=== PATIENT | female | born 1990 | race Caucasian/White ===

== ENCOUNTER 2016-12-06 09:27 | Emergency (ER) | payer SELFPAY ==
[~2016-12-06] VITALS: Ht 167.6 cm; Wt 86.2 kg
[2016-12-06 09:39] VITALS: BP 126/81
--- NOTE | 2016-12-06 09:53 | PHYS DOC ---
Past Medical History Past Medical History: Asthma, UTI, Other Additional Past Medical Histor: MOOD DISORDER, TREMOR R ARM, TACHYCARDIA Past Surgical History: No Surgical History Alcohol Use: Occasionally Drug Use: None Adult General Chief Complaint Chief Complaint: BACK PAIN - NO INJURY [facility] HPI Patient is a 26 year old female presents to the emergency department stating that she has been having a headache on and off for the last month. She states that she's been having a migraine. She also states that whenever she bends her head down that she feels as though her vision goes completely dark. She denies any photophobia. She does state that she has an area on her left parietal area feels numb and tingly occasionally. Patient also states that she's been having bilateral back pain for the last 2 weeks. She denies any urinary frequency urgency or pain with urination denies any blood in her urine. Denies any foul odor. She denies any fever, chills or any nausea vomiting. Patient states she's been taken [id number] medications for the headache and the pain. Review of Systems Review of Systems Constitutional: Denies fever or chills [] Eyes: Denies change in visual acuity, redness, or eye pain [] HENT: nasal congestion denies sore throat [] Respiratory: cough denies shortness of breath [] Cardiovascular: No additional information not addressed in HPI [] GI: Denies abdominal pain, nausea, vomiting, bloody stools or diarrhea [] : Denies dysuria or hematuria [] Musculoskeletal: Bilateral flank back pain denies joint pain [] Integument: Denies rash or skin lesions [] Neurologic: Denies headache, focal weakness or sensory changes [] Endocrine: Denies polyuria or polydipsia [] Current Medications Current Medications Current Medications Medications (Trade) Dose Ordered Sig/Mirza Start Time Stop Time Status Last Admin Dose Admin Albuterol/ Ipratropium (Duoneb) 3 ml 1X ONCE 12/06/16 10:00 12/06/16 10:01 DC 12/06/16 10:01 3 ML Allergies Allergies Allergies Coded Allergies Type Severity Reaction Last Updated Verified Sulfa (Sulfonamide Antibiotics) Allergy Intermediate RASH 12/06/16 Yes levofloxacin Allergy Intermediate HIVES 12/06/16 Yes promethazine Allergy Mild NAUSEA 12/06/16 Yes ibuprofen Allergy Unknown 12/06/16 Yes Physical Exam Physical Exam Constitutional: Well developed, well nourished, no acute distress, non-toxic appearance. [] HENT: Normocephalic, atraumatic, bilateral external ears normal, oropharynx moist, no oral exudates, nose normal. Bilateral tympanic membranes appear to be normal. Throat appears to be without erythematous redness drainage or discharge noted. No frontal maxillary sinus tenderness noted. Eyes: PERRLA, EOMI, conjunctiva normal, no discharge. [] Neck: Normal range of motion, no tenderness, supple, no stridor. [] Cardiovascular:Heart rate regular rhythm, no murmur [] Lungs & Thorax: Bilateral breath sounds clear to auscultation [] Skin: Warm, dry, no erythema, no rash. [] Back: No tenderness, bilateral CVA tenderness. [] Extremities: No tenderness, no cyanosis, no clubbing, ROM intact, no edema. [] Neurologic: Alert and oriented X 3, normal motor function, normal sensory function, no focal deficits noted. [] Psychologic: Affect normal, judgement normal, mood normal. [] Current Patient Data Vital Signs Vital Signs Date Time Temp Pulse Resp B/P (MAP) Pulse Ox O2 Delivery O2 Flow Rate FiO2 12/06/16 10:03 99 Room Air 12/06/16 09:39 98.4 98 18 98.4 Lab Values Laboratory Tests Test 12/06/16 08:59 12/06/16 09:40 POC Urine HCG, Qualitative Hcg negative (Negative) Urine Collection Type Unknown Urine Color Yellow Urine Clarity Cloudy Urine pH 6.0 Urine Specific [place] 1.025 Urine Protein Negative mg/dL (NEG-TRACE) Urine Glucose (UA) Negative mg/dL (NEG) Urine Ketones (Stick) 15 mg/dL (NEG) Urine Blood Negative (NEG) Urine Nitrite Negative (NEG) Urine Bilirubin Negative (NEG) Urine Urobilinogen Dipstick 0.2 mg/dL (0.2 mg/dL) Urine Leukocyte Esterase Moderate (NEG) Urine RBC 1-2 /HPF (0-2) Urine WBC 5-10 /HPF (0-4) Urine Squamous Epithelial Cells Mod /LPF Urine Bacteria Moderate /HPF (0-FEW) EKG EKG [] Radiology/Procedures Radiology/Procedures [][facility] [address] [place] [address] IMAGING REPORT Signed PATIENT: DIAN CURIEL ACCOUNT: [id number] : 1990 LOCATION: ER AGE: 26 SEX: F EXAM STATUS: REG ER ORD. PHYSICIAN: YOSSI JAY APRN REASON: C/o visual problems with headaches PROCEDURE: CT HEAD WO CONTRAST CT scan of the head without contrast 12/06/2016 Clinical history: Headache with visual problems for one month. Technique: Unenhanced, contiguous, 5 mm axial sections were obtained through the head. One or more of the following individualized dose reduction techniques were utilized for this study: 1. Automated exposure control. 2. Adjustment of the mA and/or kV according to patient size. 3. Use of iterative reconstruction technique. Findings: The ventricles and sulci are within normal limits in size and configuration. No area of abnormal attenuation is involving the brain parenchyma. No extra-axial fluid collection is seen. No skull fracture is noted. Impression: Negative study. DICTATED and SIGNED BY: BEBETO PEPPER MD DATE: 12/06/16 1125 CC: YOSSI JAY APRN; NO PCP; NON,STAFF ~ Course & Med Decision Making Course & Med Decision Making Pertinent Labs and Imaging studies reviewed. (See chart for details) Patient's urine was positive for urinary tract infection. Patient does have an upper respiratory infection as well. Patient also is complaining of a headache here in the emergency Department with CT scan being negative. Patient will be encouraged to rest and follow-up with her primary care physician. Patient be provided a prescription for prednisone to help with inflammation. Patient will be discharged home in stable condition signs and symptoms to return back to emergency department as been provided. Patient was also encouraged to follow-up with a neurologist in regards to her vision issues when she bends her head down. Patient agrees with discharge instructions, treatment regimens and follow- up recommendations. All questions and concerns been answered at patient's bedside Dragon Disclaimer Dragon Disclaimer This electronic medical record was generated, in whole or in part, using a voice recognition dictation system. Departure Departure Impression: Primary Impression: URI (upper respiratory infection) Additional Impression: UTI (urinary tract infection) Disposition: HOME, SELF-CARE Condition: STABLE Referrals: NO PCP (PCP) Patient Instructions: Upper Respiratory Infection, Adult, [id number], Urinary Tract Infection, [id number] Additional Instructions: Activity as tolerated. Medication as prescribed. Follow-up with your primary care physician within the next week. It is advisable that you follow-up with a neurologist in regards to your vision issues when you're pending her head. Return back to emergency department sign symptoms of become worse. Scripts Prednisone (PREDNISONE) 20 Mg Tablet 40 MG PO DAILY for 7 Days, #14 TAB Prov: YOSSI JAY APRN 12/06/16 Cephalexin (CEPHALEXIN) 500 Mg Tablet 1 TAB PO BID, #20 TAB Prov: YOSSI JAY APRN 12/06/16 Problem Qualifiers Primary Impression: URI (upper respiratory infection) URI type: unspecified URI Qualified Codes: J06.9 - Acute upper respiratory infection, unspecified Additional Impression: UTI (urinary tract infection) Urinary tract infection type: site unspecified Hematuria presence: without hematuria Qualified Codes: N39.0 - Urinary tract infection, site not specified YOSSI JAY APRN Dec 06, 2016 09:53
[2016-12-06 09:56] LABS: BILIRUBIN,URINE NEGATIVE (NEG); GLUCOSE,URINE NEGATIVE (NEG); NITRITE,URINE NEGATIVE (NEG); PROTEIN,URINE NEGATIVE (NEG-TRACE); UROBILINOGEN,URINE 0.2 mg/dL (0.2 mg/dL)
[2016-12-06] MEDS ORDERED: IPRATRPIUM/ALBUTEROL 0.5/2.5MG 3 ML NEBU. NEB ONE (10:00)
[2016-12-06 10:07] LABS: BACTERIA,URINE MODERATE /HPF (0-FEW)
[2016-12-06 10:08] LABS: SQUAMOUS EPITHELIAL CELL,UR MOD /LPF
--- NOTE | 2016-12-06 11:29 | RAD ---
CT scan of the head without contrast 12/06/2016 Clinical history: Headache with visual problems for one month. Technique: Unenhanced, contiguous, 5 mm axial sections were obtained through the head. One or more of the following individualized dose reduction techniques were utilized for this study: 1. Automated exposure control. 2. Adjustment of the mA and/or kV according to patient size. 3. Use of iterative reconstruction technique. Findings: The ventricles and sulci are within normal limits in size and configuration. No area of abnormal attenuation is involving the brain parenchyma. No extra-axial fluid collection is seen. No skull fracture is noted. Impression: Negative study.
[2016-12-06] MEDS ORDERED: PRED20TA PO (11:36)
[2016-12-06] MEDS ORDERED: CEPH500T PO (11:36)
== END 2016-12-06 11:49 | disposition home or self-care (01) ==
LOC: ER 09:27
DX: J06.9 Acute upper respiratory infection, unspecified (principal); N39.0 Urinary tract infection, site not specified; J45.909 Unspecified asthma, uncomplicated; G43.909 Migraine, unspecified, not intractable, without status migrainosus; Z88.2 Allergy status to sulfonamides; Z88.1 Allergy status to other antibiotic agents; Z88.8 Allergy status to other drugs, medicaments and biological substances; Z88.6 Allergy status to analgesic agent
CPT/HCPCS: 70450; 81001; 81025; 87086; 94250; 94640; 99285; J7620

== ENCOUNTER 2017-03-25 16:51 | Emergency (ER) | payer SELFPAY ==
[~2017-03-25] VITALS: Ht 167.6 cm; Wt 83.9 kg
[~2017-03-25 16:51] MED LIST: CEPH500T PO; PRED20TA PO
[2017-03-25] MEDS ORDERED: IV NORMAL SALINE 1000ML BAG 1,000 ML IV ONE (17:45)
[2017-03-25] MEDS ORDERED: MORPHINE SULFATE 10 MG/ML VIAL. IV ONE (17:45)
[2017-03-25] MEDS ORDERED: ONDANSETRON PF 4 MG/2 ML VIAL. IV ONE (17:45)
[2017-03-25 17:52] LABS: BASO % 0 % (0-3); EOS % 0 % (0-3); HEMATOCRIT 41.4 % (36.0-47.0); HEMOGLOBIN 13.9 g/dL (12.0-15.5); LYMPH # 0.7 x10^3/uL (1.0-4.8); LYMPH % 9 % (24-48); MEAN CORPUSCULAR HEMOGLOBIN 29 pg (25-35); MEAN CORPUSCULAR HGB CONC 34 g/dL (31-37); MEAN CORPUSCULAR VOLUME 87 fL (79-100); MONO % 12 % (0-9); NEUT % 78 % (31-73); PLATELET COUNT 176 x10^3/uL (140-400); RED BLOOD COUNT 4.76 x10^6/uL (3.50-5.40); RED CELL DISTRIBUTION WIDTH 13.4 % (11.5-14.5); WHITE BLOOD COUNT 7.7 x10^3/uL (4.0-11.0)
[2017-03-25 17:59] LABS: OBC FLU VALID
[2017-03-25 18:05] LABS: CALCIUM 8.5 mg/dL (8.5-10.1); GFR 67.6; POTASSIUM 3.8 mmol/L (3.5-5.1)
[2017-03-25 18:11] LABS: ALBUMIN 3.8 g/dL (3.4-5.0); ALBUMIN/GLOBULIN RATIO 1.1 (1.0-1.7); TOTAL BILIRUBIN 0.5 mg/dL (0.2-1.0); TOTAL PROTEIN 7.3 g/dL (6.4-8.2)
--- NOTE | 2017-03-25 18:11 | PHYS DOC ---
Past Medical History Past Medical History: Anxiety, Asthma, Depression, UTI, Other Additional Past Medical Histor: MOOD DISORDER, TREMOR R ARM, TACHYCARDIA Past Surgical History: No Surgical History Alcohol Use: Occasionally Drug Use: None Adult General Chief Complaint Chief Complaint: FLU SYMPTOM HPI HPI Patient is a 26 year old female who presents with fever, sore throat, diffuse myalgias, 3 days. Temperature is 104.9 last evening. Patient last vomited earlier this morning. Denies dizziness lightheadedness. No abdominal pain. No other acute symptoms or complaints. Last menstrual period 10 days ago. Patient is not currently on control. [] Review of Systems Review of Systems His symptoms as per history of present illness. All other review symptoms are negative. All other systems were reviewed and found to be within normal limits, except as documented in this note. Current Medications Current Medications Current Medications Medications (Trade) Dose Ordered Sig/Mirza Start Time Stop Time Status Last Admin Dose Admin Morphine Sulfate 5 mg 1X ONCE 03/25/17 17:45 03/25/17 17:46 DC Ondansetron HCl (Zofran) 4 mg 1X ONCE 03/25/17 17:45 03/25/17 17:46 DC Sodium Chloride 1,000 ml @ 1,000 mls/hr 1X ONCE 03/25/17 17:45 03/25/17 18:44 03/25/17 17:45 1,000 MLS/HR Allergies Allergies Allergies Coded Allergies Type Severity Reaction Last Updated Verified Sulfa (Sulfonamide Antibiotics) Allergy Intermediate RASH 12/06/16 Yes levofloxacin Allergy Intermediate HIVES 12/06/16 Yes promethazine Allergy Mild NAUSEA 12/06/16 Yes ibuprofen Allergy Unknown 12/06/16 Yes Physical Exam Physical Exam Constitutional: Well developed, well nourished,, uncomfortable and sick appearing. [] HENT: Normocephalic, atraumatic, bilateral external ears normal, oropharynx, mild pharyngeal erythema, no oral exudates, nose normal. [] Eyes: PERRLA, EOMI, conjunctiva normal, no discharge. [] Neck: Normal range of motion, no tenderness, supple, no stridor. [] Cardiovascular: Tachycardia[] Lungs & Thorax: Bilateral breath sounds clear to auscultation [] Abdomen: Bowel sounds normal, soft, no tenderness, no masses, no pulsatile masses. [] Skin: Warm, dry, no erythema, no rash. [] Back: No tenderness, no CVA tenderness. [] Extremities: No tenderness, no cyanosis, no clubbing, ROM intact, no edema. [] Neurologic: Alert and oriented X 3, normal motor function, normal sensory function, no focal deficits noted. [] Psychologic: Affect normal, judgement normal, mood normal. [] Current Patient Data Vital Signs Vital Signs Date Time Temp Pulse Resp B/P (MAP) Pulse Ox O2 Delivery O2 Flow Rate FiO2 03/25/17 17:24 102.5 144 18 125/53 (77) 96 Room Air 102.5 Lab Values Laboratory Tests Test 03/25/17 17:30 03/25/17 17:45 03/25/17 17:46 Influenza Type A Antigen Positive (NEGATIVE) Influenza Type B Antigen Negative (NEGATIVE) White Blood Count 7.7 x10^3/uL (4.0-11.0) Red Blood Count 4.76 x10^6/uL (3.50-5.40) Hemoglobin 13.9 g/dL (12.0-15.5) Hematocrit 41.4 % (36.0-47.0) Mean Corpuscular Volume 87 fL (79-100) Mean Corpuscular Hemoglobin 29 pg (25-35) Mean Corpuscular Hemoglobin Concent 34 g/dL (31-37) Red Cell Distribution Width 13.4 % (11.5-14.5) Platelet Count 176 x10^3/uL (140-400) Neutrophils (%) (Auto) 78 % (31-73) H Lymphocytes (%) (Auto) 9 % (24-48) L Monocytes (%) (Auto) 12 % (0-9) H Eosinophils (%) (Auto) 0 % (0-3) Basophils (%) (Auto) 0 % (0-3) Neutrophils # (Auto) 6.0 x10^3uL (1.8-7.7) Lymphocytes # (Auto) 0.7 x10^3/uL (1.0-4.8) L Monocytes # (Auto) 1.0 x10^3/uL (0.0-1.1) Eosinophils # (Auto) 0.0 x10^3/uL (0.0-0.7) Basophils # (Auto) 0.0 x10^3/uL (0.0-0.2) POC Urine HCG, Qualitative Hcg negative (Negative) Laboratory Tests 03/25/17 17:45 EKG EKG [] Radiology/Procedures Radiology/Procedures [] Course & Med Decision Making Course & Med Decision Making Pertinent Labs and Imaging studies reviewed. (See chart for details) [Patient influenza positive. IV fluids pain medication given with symptomatic relief. Recommend continued supportive care and PCP follow-up. Return precautions reviewed. Patient verbalizes understanding agreement prior to departure.] Dragon Disclaimer Dragon Disclaimer This electronic medical record was generated, in whole or in part, using a voice recognition dictation system. Departure Departure Impression: Primary Impression: Influenza A Disposition: HOME, SELF-CARE Condition: GOOD Referrals: NO PCP (PCP) Patient Instructions: Influenza A (H1N1) Additional Instructions: You were evaluated in the emergency department for fever body aches nausea and vomiting. Lab work was obtained and positive for influenza A. Influenza is a viral illness that typically lasts between 3-5 days. Please go home and rest, take ibuprofen for pain and hydrocodone as needed for additional relief. Take nausea medication as directed. Please follow-up with your physician in 3-5 days if symptoms persist. In the meantime, if you develop new or worsening symptoms, please return to the emergency department. BIANKA TELLEZ DO Mar 25, 2017 18:11
[2017-03-25 18:13] LABS: NEG OBC SER NEG; POS OBC SER POS
[2017-03-25 18:35] VITALS: BP 105/67
== END 2017-03-25 18:36 | disposition home or self-care (01) ==
LOC: ER 16:51
DX: J09.X2 Influenza due to identified novel influenza A virus with other respiratory manifestations (principal); F41.9 Anxiety disorder, unspecified; J45.909 Unspecified asthma, uncomplicated; F32.9 Major depressive disorder, single episode, unspecified; Z88.2 Allergy status to sulfonamides; Z87.440 Personal history of urinary (tract) infections; Z88.1 Allergy status to other antibiotic agents; Z88.6 Allergy status to analgesic agent; Z88.8 Allergy status to other drugs, medicaments and biological substances
CPT/HCPCS: 36415; 80053; 81025; 84703; 85025; 87804; 96360; 99284; J7030

== ENCOUNTER 2018-01-16 22:17 | Emergency (ER) | payer SELFPAY ==
[~2018-01-16] VITALS: Ht 167.6 cm; Wt 83.9 kg
[2018-01-16 22:54] VITALS: BP 105/56
--- NOTE | 2018-01-16 23:06 | PHYS DOC ---
Past Medical History Past Medical History: Anxiety, Asthma, Depression, UTI, Other Additional Past Medical Histor: MOOD DISORDER, TREMOR R ARM, TACHYCARDIA Past Surgical History: No Surgical History Alcohol Use: Occasionally Drug Use: None Additional Procedures Progress Pelvic exam with commissioner of conciliation LEDY Pike Genitalia normal morphology with blood at the introitus Exam with blood in the vault moderate clots. There are products of conception at the os. I successfully removed POC from the os with ring forceps and placed in a specimen container. Once products of conception were removed there is no bleeding seen from the os. Exam external os is open internal os is closed has mild uterine tenderness on palpation no adnexal masses or tenderness appreciated Adult General Chief Complaint Chief Complaint: VAGINAL BLEEDING [facility] HPI Patient is a 27 year old female who presents with pelvic pain and vaginal bleeding she is 6 weeks She was seen at [facility] 2 days ago was given pills for elective . She started bleeding this evening at 5:00pm and his had severe bleeding since then. She's passed more than 20 large clots and is having profuse bleeding with pain. She presents for evaluation. Her blood type is O+ per her report. Review of Systems Review of Systems Constitutional: Denies fever or chills Eyes: Denies change in visual acuity, redness, or eye pain HENT: Denies nasal congestion or sore throat Respiratory: Denies cough or shortness of breath Cardiovascular: No additional information not addressed in HPI GI: with lower abdominal pain, nausea, no vomiting, bloody stools or diarrhea : Denies dysuria or hematuria, with vaginal bleeding Musculoskeletal: Denies back pain or joint pain Integument: Denies rash or skin lesions Neurologic: Denies headache, focal weakness or sensory changes Endocrine: Denies polyuria or polydipsia All other systems were reviewed and found to be within normal limits, except as documented in this note. Current Medications Current Medications Current Medications Medications (Trade) Dose Ordered Sig/Mirza Start Time Stop Time Status Last Admin Dose Admin Acetaminophen (Tylenol) 1,000 mg 1X ONCE 01/17/18 03:00 01/17/18 03:01 DC 01/17/18 02:57 1,000 MG Sodium Chloride 1,000 ml @ 1,000 mls/hr 1X ONCE 01/17/18 03:00 01/17/18 03:59 DC 01/17/18 03:02 1,000 MLS/HR Allergies Allergies Allergies Coded Allergies Type Severity Reaction Last Updated Verified Sulfa (Sulfonamide Antibiotics) Allergy Intermediate RASH 12/06/16 Yes ibuprofen Allergy Intermediate 01/16/18 Yes levofloxacin Allergy Intermediate HIVES 12/06/16 Yes promethazine Allergy Mild NAUSEA 12/06/16 Yes Physical Exam Physical Exam Constitutional: Well developed, well nourished, no acute distress, non-toxic appearance. HENT: Normocephalic, atraumatic, bilateral external ears normal, oropharynx moist, no oral exudates, nose normal. Eyes: PERRLA, EOMI, conjunctiva normal, no discharge. Neck: Normal range of motion, no tenderness, supple, no stridor. Cardiovascular:Heart rate regular rhythm, no murmur Lungs & Thorax: Bilateral breath sounds clear to auscultation Abdomen: Bowel sounds normal, soft, no tenderness, no masses, no pulsatile masses. Pelvic exam: see procedure note Skin: Warm, dry, no erythema, no rash. Back: No tenderness, no CVA tenderness. Extremities: No tenderness, no cyanosis, no clubbing, ROM intact, no edema. Neurologic: Alert and oriented X 3, normal motor function, normal sensory function, no focal deficits noted. Psychologic: Affect normal, judgement normal, mood normal. Current Patient Data Vital Signs Vital Signs Date Time Temp Pulse Resp B/P (MAP) Pulse Ox O2 Delivery O2 Flow Rate FiO2 01/16/18 22:54 98.0 116 20 105/56 (72) 100 Room Air 98.0 Lab Values Laboratory Tests Test 01/17/18 00:18 01/17/18 02:58 White Blood Count 18.6 x10^3/uL (4.0-11.0) H Red Blood Count 4.62 x10^6/uL (3.50-5.40) Hemoglobin 14.0 g/dL (12.0-15.5) Hematocrit 41.0 % (36.0-47.0) Mean Corpuscular Volume 89 fL (79-100) Mean Corpuscular Hemoglobin 30 pg (25-35) Mean Corpuscular Hemoglobin Concent 34 g/dL (31-37) Red Cell Distribution Width 13.2 % (11.5-14.5) Platelet Count 284 x10^3/uL (140-400) Neutrophils (%) (Auto) 81 % (31-73) H Lymphocytes (%) (Auto) 14 % (24-48) L Monocytes (%) (Auto) 5 % (0-9) Eosinophils (%) (Auto) 0 % (0-3) Basophils (%) (Auto) 0 % (0-3) Neutrophils # (Auto) 15.0 x10^3uL (1.8-7.7) H Lymphocytes # (Auto) 2.5 x10^3/uL (1.0-4.8) Monocytes # (Auto) 1.0 x10^3/uL (0.0-1.1) Eosinophils # (Auto) 0.0 x10^3/uL (0.0-0.7) Basophils # (Auto) 0.1 x10^3/uL (0.0-0.2) Prothrombin Time 13.3 SEC (11.7-14.0) Prothrombin Time INR 1.1 (0.8-1.1) Maternal Serum HCG Beta Subunit 601051 mIU/mL (0-5) H Sodium Level 139 mmol/L (136-145) Potassium Level 3.9 mmol/L (3.5-5.1) Chloride Level 102 mmol/L (98-107) Carbon Dioxide Level 24 mmol/L (21-32) Anion Gap 13 (6-14) Blood Urea Nitrogen 10 mg/dL (7-20) Creatinine 0.9 mg/dL (0.6-1.0) Estimated GFR (Cockcroft-Gault) 75.7 BUN/Creatinine Ratio 11 (6-20) Glucose Level 99 mg/dL (70-99) Calcium Level 9.7 mg/dL (8.5-10.1) Total Bilirubin 0.7 mg/dL (0.2-1.0) Aspartate Amino Transferase (AST) 21 U/L (15-37) Alanine Aminotransferase (ALT) 20 U/L (14-59) Alkaline Phosphatase 85 U/L (46-116) Total Protein 7.1 g/dL (6.4-8.2) Albumin 3.7 g/dL (3.4-5.0) Albumin/Globulin Ratio 1.1 (1.0-1.7) Urine Collection Type Unknown Urine Color Red Urine Clarity Bloody Urine pH 5.5 Urine Specific [place] >=1.030 Urine Protein >=300 mg/dL (NEG-TRACE) Urine Glucose (UA) Negative mg/dL (NEG) Urine Ketones (Stick) >=80 mg/dL (NEG) Urine Blood Large (NEG) Urine Nitrite Negative (NEG) Urine Bilirubin Small (NEG) Urine Urobilinogen Dipstick 1.0 mg/dL (0.2 mg/dL) Urine Leukocyte Esterase Trace (NEG) Urine RBC Tntc /HPF (0-2) Urine WBC 1-4 /HPF (0-4) Urine Squamous Epithelial Cells Occ /LPF Urine Bacteria 0 /HPF (0-FEW) Laboratory Tests 01/17/18 00:18 Laboratory Tests 01/17/18 00:18 EKG EKG [] Radiology/Procedures Radiology/Procedures [facility] [address] [place], [place] [id number] IMAGING REPORT Signed PATIENT: DIAN CURIEL ACCOUNT: [id number] : 1990 LOCATION: ER AGE: 27 SEX: F EXAM STATUS: REG ER ORD. PHYSICIAN: CHANEL ALEXANDER MD REASON: rule out retained products of conception PROCEDURE: PELVIS W/TV Pelvic ultrasound with transvaginal: Reason for examination: Heavy bleeding after taking second pill today. Transabdominal and transvaginal ultrasound examination of the pelvis was performed. Transabdominally, the uterus shows no focal lesions. Endometrium is thickened. There is a corpus luteal cyst at the left ovary measuring approximately 2.4 cm in size. Transvaginally, the uterus measures 9.5 x 4.7 x 5.8 cm in greatest dimension. Endometrium is thickened at 3 cm and contains blood flow. Right ovary measures 2.6 x 2.0 x 1.9 cm in greatest dimension and shows normal blood flow. Left ovary measures 3.7 x 2.6 x 3.0 cm in greatest dimension and appears to contain a 2 x 1.8 x 1.6 cm corpus luteal cyst. No free fluid is seen. IMPRESSION: Thickened endometrium with blood flow to the endometrium. 2 cm corpus luteal cyst the left ovary. Electronically signed by: Gia Khan MD (01/17/2018 12:42 AM) [id number] DICTATED and SIGNED BY: GIA KHAN MD DATE: 01/17/18 0037 Course & Med Decision Making Course & Med Decision Making Pertinent Labs and Imaging studies reviewed. (See chart for details) Emergency Department Course Patient presents with vaginal bleeding and cramping DDx- incomplete , vaginal bleeding, retained POC Patient was stable in the ED. POC removed with vaginal exam. Pelvic U/S showed no retained POC. Labs remarkable for leukocytosis. Blood type O+. Clinically patient has had complete . 02:[address] Mahoney who recommends office follow-up. Patient to return to the ED if she develops worse bleeding, return to the ED. 04:00 U/A unremarkable. Patient improved with decreased cramping and bleeding. Patient will follow-up with outpatient [facility] evaluation for further evaluation and serial BHCG testing. Patient advised to call [facility] office today for follow-up. Dragon Disclaimer Dragon Disclaimer This electronic medical record was generated, in whole or in part, using a voice recognition dictation system. Departure Departure Impression: Primary Impression: Complete Additional Impressions: Abnormal vaginal bleeding Leukocytosis Disposition: HOME, SELF-CARE Condition: STABLE Referrals: NO PCP (PCP) DOMINGA MAHONEY MD Follow-up for further evaluation and serial BHCG testing. Call today for an appointment. Patient Instructions: Abnormal Uterine Bleeding, , Prostaglandin- Induced Additional Instructions: If you develop worse bleeding, pain, fevers, vomiting, shortness of breath return to the Emergency Department immediately Problem Qualifiers Additional Impressions: Leukocytosis Leukocytosis type: unspecified Qualified Codes: D72.829 - Elevated white blood cell count, unspecified CHANEL ALEXANDER MD Jan 16, 2018 23:06
[2018-01-16] MEDS ORDERED: IV NORMAL SALINE 1000ML BAG 1,000 ML IV ONE (23:30)
[2018-01-17 00:30] LABS: BASO # 0.1 x10^3/uL (0.0-0.2); BASO % 0 % (0-3); EOS % 0 % (0-3); LYMPH # 2.5 x10^3/uL (1.0-4.8); LYMPH % 14 % (24-48); MEAN CORPUSCULAR HEMOGLOBIN 30 pg (25-35); MEAN CORPUSCULAR HGB CONC 34 g/dL (31-37); MEAN CORPUSCULAR VOLUME 89 fL (79-100); MONO % 5 % (0-9); NEUT % 81 % (31-73); PLATELET COUNT 284 x10^3/uL (140-400); RED BLOOD COUNT 4.62 x10^6/uL (3.50-5.40); RED CELL DISTRIBUTION WIDTH 13.2 % (11.5-14.5); WHITE BLOOD COUNT 18.6 x10^3/uL (4.0-11.0)
--- NOTE | 2018-01-17 00:45 | RAD ---
Pelvic ultrasound with transvaginal: Reason for examination: Heavy bleeding after taking second pill today. Transabdominal and transvaginal ultrasound examination of the pelvis was performed. Transabdominally, the uterus shows no focal lesions. Endometrium is thickened. There is a corpus luteal cyst at the left ovary measuring approximately 2.4 cm in size. Transvaginally, the uterus measures 9.5 x 4.7 x 5.8 cm in greatest dimension. Endometrium is thickened at 3 cm and contains blood flow. Right ovary measures 2.6 x 2.0 x 1.9 cm in greatest dimension and shows normal blood flow. Left ovary measures 3.7 x 2.6 x 3.0 cm in greatest dimension and appears to contain a 2 x 1.8 x 1.6 cm corpus luteal cyst. No free fluid is seen. IMPRESSION: Thickened endometrium with blood flow to the endometrium. 2 cm corpus luteal cyst the left ovary. Electronically signed by: Julia Hogan MD (01/17/2018 12:42 AM) [id number]
[2018-01-17 00:47] LABS: PROTHROMBIN TIME PATIENT 13.3 SEC (11.7-14.0)
[2018-01-17 00:54] LABS: CALCIUM 9.7 mg/dL (8.5-10.1); CREATININE 0.9 mg/dL (0.6-1.0); GFR 75.7; POTASSIUM 3.9 mmol/L (3.5-5.1)
[2018-01-17 00:58] LABS: ALBUMIN 3.7 g/dL (3.4-5.0); ALBUMIN/GLOBULIN RATIO 1.1 (1.0-1.7); TOTAL BILIRUBIN 0.7 mg/dL (0.2-1.0); TOTAL PROTEIN 7.1 g/dL (6.4-8.2)
[2018-01-17] MEDS ORDERED: IV NORMAL SALINE 1000ML BAG 1,000 ML IV ONE (03:00)
[2018-01-17] MEDS ORDERED: ACETAMINOPHEN 500 MG TABLET PO ONE (03:00)
[2018-01-17 03:38] LABS: BILIRUBIN,URINE SMALL (NEG); NITRITE,URINE NEGATIVE (NEG); PH,URINE 5.5; PROTEIN,URINE >=300 mg/dL (NEG-TRACE)
[2018-01-17 03:44] LABS: CLARITY,URINE BLOODY; COLOR,URINE RED; RBC,URINE TNTC /HPF (0-2)
[2018-01-17 03:45] LABS: BACTERIA,URINE 0 /HPF (0-FEW); SQUAMOUS EPITHELIAL CELL,UR OCC /LPF
== END 2018-01-17 04:44 | disposition home or self-care (01) ==
LOC: ER 22:17
DX: O03.9 Complete or unspecified spontaneous abortion without complication (principal); D72.829 Elevated white blood cell count, unspecified; O99.341 Other mental disorders complicating pregnancy, first trimester; O99.511 Diseases of the respiratory system complicating pregnancy, first trimester; F41.8 Other specified anxiety disorders; J45.909 Unspecified asthma, uncomplicated; Z88.6 Allergy status to analgesic agent; Z88.2 Allergy status to sulfonamides; Z88.8 Allergy status to other drugs, medicaments and biological substances; Z3A.01 Less than 8 weeks gestation of pregnancy
CPT/HCPCS: 36415; 76830; 76856; 80053; 81001; 84702; 85025; 85610; 86850; 86900; 86901; 99285; J7030

== ENCOUNTER 2018-09-28 14:55 | Emergency (ER) | payer SELFPAY ==
[~2018-09-28] VITALS: Ht 167.6 cm; Wt 82.6 kg
[2018-09-28 15:11] VITALS: BP 123/68
[2018-09-28 15:30] LABS: BILIRUBIN,URINE NEGATIVE (NEG); CLARITY,URINE CLEAR; COLOR,URINE YELLOW; NITRITE,URINE NEGATIVE (NEG); PROTEIN,URINE NEGATIVE (NEG-TRACE)
[2018-09-28] MEDS ORDERED: IV NORMAL SALINE 1000ML BAG 1,000 ML IV ONE (15:30)
--- NOTE | 2018-09-28 15:38 | PHYS DOC ---
Past Medical History Past Medical History: Anxiety, Asthma, Depression, UTI, Other Additional Past Medical Histor: MOOD DISORDER, TREMOR R ARM, TACHYCARDIA Past Surgical History: No Surgical History Alcohol Use: Occasionally Drug Use: None Adult General Chief Complaint Chief Complaint: VAGINAL BLEEDING HPI HPI 28-year-old female presents to ER via POV for complaints of vaginal bleeding and right lower abdominal pain. Patient states her LMP was 08/11/18 and that she is taken home tests which have been positive. She denies any OB care or blood test for confirmation. Patient states she did have sexual intercourse within the past 24 hours and did have pain following intercourse. Patient reports 2 days ago she did have some dysuria and denies any urinary symptoms today. Patient reports she has had intermittent nausea and vomiting for the past 7 weeks. Patient currently rates pain at 2-3/10. Patient denies fever, diarrhea, or lower back pain. She reports she has been with her boyfriend since June. She reports she is in a safe environment. She reports with this she would be 2 para 0 as she had an last January. Review of Systems Review of Systems Constitutional: Denies fever or chills [] Eyes: Denies change in visual acuity, redness, or eye pain [] HENT: Denies nasal congestion or sore throat [] Respiratory: Denies cough or shortness of breath [] Cardiovascular: No additional information not addressed in HPI [] GI: Denies bloody stools or diarrhea. Reports rt lower abd pain with intermittent N/V : Denies hematuria. Reports dysuria 2 days ago- denies today. Reports vaginal bleeding Musculoskeletal: Denies back pain or joint pain [] Integument: Denies rash or skin lesions [] Neurologic: Denies headache, focal weakness or sensory changes. Denies dizziness All other systems were reviewed and found to be within normal limits, except as documented in this note. Current Medications Current Medications Current Medications Medications (Trade) Dose Ordered Sig/Mirza Start Time Stop Time Status Last Admin Dose Admin Sodium Chloride 1,000 ml @ 1,000 mls/hr 1X ONCE 09/28/18 15:30 09/28/18 16:29 DC 09/28/18 15:44 1,000 MLS/HR Allergies Allergies Allergies Coded Allergies Type Severity Reaction Last Updated Verified Sulfa (Sulfonamide Antibiotics) Allergy Intermediate RASH 12/06/16 Yes ibuprofen Allergy Intermediate 01/16/18 Yes levofloxacin Allergy Intermediate HIVES 12/06/16 Yes promethazine Allergy Mild NAUSEA 12/06/16 Yes Physical Exam Physical Exam Constitutional: Well developed, well nourished, no acute distress, non-toxic appearance. [] HENT: Normocephalic, atraumatic, oropharynx moist, no oral exudates, nose normal. [] Eyes: Pupils equal, conjunctiva normal, no discharge. [] Neck: Normal range of motion, no tenderness, supple, no stridor. [] Cardiovascular: Tachycardic heart rate regular rhythm- hx tachycardia and pt is anxious during initial exam, no murmur [] Lungs & Thorax: Bilateral breath sounds clear to auscultation [] Abdomen: Bowel sounds normal, soft- no distention/rigidity, no masses, no pulsatile masses. [] Skin: Warm, dry, no erythema, no rash. [] Back: No tenderness, no CVA tenderness. [] Extremities: No tenderness, no cyanosis, no clubbing, ROM intact, no edema. [] Neurologic: Alert and oriented X 3, normal motor function, normal sensory function, no focal deficits noted. [] Psychologic: Affect normal, judgement normal, mood normal. [] Current Patient Data Vital Signs Vital Signs Date Time Temp Pulse Resp B/P (MAP) Pulse Ox O2 Delivery O2 Flow Rate FiO2 09/28/18 15:11 98.2 113 18 123/68 (86) 99 Room Air 98.2 Lab Values Laboratory Tests Test 09/28/18 15:01 09/28/18 15:25 09/28/18 15:40 Urine Collection Type Unknown Urine Color Yellow Urine Clarity Clear Urine pH 7.0 Urine Specific [place] 1.015 Urine Protein Negative mg/dL (NEG-TRACE) Urine Glucose (UA) Negative mg/dL (NEG) Urine Ketones (Stick) Negative mg/dL (NEG) Urine Blood Negative (NEG) Urine Nitrite Negative (NEG) Urine Bilirubin Negative (NEG) Urine Urobilinogen Dipstick 1.0 mg/dL (0.2 mg/dL) Urine Leukocyte Esterase Trace (NEG) Urine RBC 1-2 /HPF (0-2) Urine WBC 1-4 /HPF (0-4) Urine Squamous Epithelial Cells Mod /LPF Urine Bacteria 0 /HPF (0-FEW) Urine Mucus Slight /LPF POC Urine HCG, Qualitative Hcg positive (Negative) White Blood Count 10.3 x10^3/uL (4.0-11.0) Red Blood Count 4.75 x10^6/uL (3.50-5.40) Hemoglobin 11.7 g/dL (12.0-15.5) L Hematocrit 36.4 % (36.0-47.0) Mean Corpuscular Volume 77 fL (79-100) L Mean Corpuscular Hemoglobin 25 pg (25-35) Mean Corpuscular Hemoglobin Concent 32 g/dL (31-37) Red Cell Distribution Width 18.0 % (11.5-14.5) H Platelet Count 258 x10^3/uL (140-400) Neutrophils (%) (Auto) 76 % (31-73) H Lymphocytes (%) (Auto) 17 % (24-48) L Monocytes (%) (Auto) 6 % (0-9) Eosinophils (%) (Auto) 1 % (0-3) Basophils (%) (Auto) 0 % (0-3) Neutrophils # (Auto) 7.9 x10^3uL (1.8-7.7) H Lymphocytes # (Auto) 1.7 x10^3/uL (1.0-4.8) Monocytes # (Auto) 0.6 x10^3/uL (0.0-1.1) Eosinophils # (Auto) 0.1 x10^3/uL (0.0-0.7) Basophils # (Auto) 0.0 x10^3/uL (0.0-0.2) Maternal Serum HCG Beta Subunit 59562 mIU/mL (0-5) H Sodium Level 139 mmol/L (136-145) Potassium Level 3.3 mmol/L (3.5-5.1) L Chloride Level 105 mmol/L (98-107) Carbon Dioxide Level 23 mmol/L (21-32) Anion Gap 11 (6-14) Blood Urea Nitrogen 7 mg/dL (7-20) Creatinine 0.8 mg/dL (0.6-1.0) Estimated GFR (Cockcroft-Gault) 86.0 BUN/Creatinine Ratio 9 (6-20) Glucose Level 98 mg/dL (70-99) Calcium Level 8.3 mg/dL (8.5-10.1) L Total Bilirubin 0.5 mg/dL (0.2-1.0) Aspartate Amino Transferase (AST) 13 U/L (15-37) L Alanine Aminotransferase (ALT) 14 U/L (14-59) Alkaline Phosphatase 87 U/L (46-116) Total Protein 7.4 g/dL (6.4-8.2) Albumin 3.7 g/dL (3.4-5.0) Albumin/Globulin Ratio 1.0 (1.0-1.7) Laboratory Tests 09/28/18 15:40 Laboratory Tests 09/28/18 15:40 Microbiology 09/28/18 Wet Prep - Final, Complete Laboratory Tests Test 09/28/18 15:01 09/28/18 15:25 09/28/18 15:40 Urine Collection Type Unknown Urine Color Yellow Urine Clarity Clear Urine pH 7.0 Urine Specific [place] 1.015 Urine Protein Negative mg/dL (NEG-TRACE) Urine Glucose (UA) Negative mg/dL (NEG) Urine Ketones (Stick) Negative mg/dL (NEG) Urine Blood Negative (NEG) Urine Nitrite Negative (NEG) Urine Bilirubin Negative (NEG) Urine Urobilinogen Dipstick 1.0 mg/dL (0.2 mg/dL) Urine Leukocyte Esterase Trace (NEG) Urine RBC 1-2 /HPF (0-2) Urine WBC 1-4 /HPF (0-4) Urine Squamous Epithelial Cells Mod /LPF Urine Bacteria 0 /HPF (0-FEW) Urine Mucus Slight /LPF POC Urine HCG, Qualitative Hcg positive (Negative) White Blood Count 10.3 x10^3/uL (4.0-11.0) Red Blood Count 4.75 x10^6/uL (3.50-5.40) Hemoglobin 11.7 g/dL (12.0-15.5) L Hematocrit 36.4 % (36.0-47.0) Mean Corpuscular Volume 77 fL (79-100) L Mean Corpuscular Hemoglobin 25 pg (25-35) Mean Corpuscular Hemoglobin Concent 32 g/dL (31-37) Red Cell Distribution Width 18.0 % (11.5-14.5) H Platelet Count 258 x10^3/uL (140-400) Neutrophils (%) (Auto) 76 % (31-73) H Lymphocytes (%) (Auto) 17 % (24-48) L Monocytes (%) (Auto) 6 % (0-9) Eosinophils (%) (Auto) 1 % (0-3) Basophils (%) (Auto) 0 % (0-3) Neutrophils # (Auto) 7.9 x10^3uL (1.8-7.7) H Lymphocytes # (Auto) 1.7 x10^3/uL (1.0-4.8) Monocytes # (Auto) 0.6 x10^3/uL (0.0-1.1) Eosinophils # (Auto) 0.1 x10^3/uL (0.0-0.7) Basophils # (Auto) 0.0 x10^3/uL (0.0-0.2) Maternal Serum HCG Beta Subunit 78521 mIU/mL (0-5) H Sodium Level 139 mmol/L (136-145) Potassium Level 3.3 mmol/L (3.5-5.1) L Chloride Level 105 mmol/L (98-107) Carbon Dioxide Level 23 mmol/L (21-32) Anion Gap 11 (6-14) Blood Urea Nitrogen 7 mg/dL (7-20) Creatinine 0.8 mg/dL (0.6-1.0) Estimated GFR (Cockcroft-Gault) 86.0 BUN/Creatinine Ratio 9 (6-20) Glucose Level 98 mg/dL (70-99) Calcium Level 8.3 mg/dL (8.5-10.1) L Total Bilirubin 0.5 mg/dL (0.2-1.0) Aspartate Amino Transferase (AST) 13 U/L (15-37) L Alanine Aminotransferase (ALT) 14 U/L (14-59) Alkaline Phosphatase 87 U/L (46-116) Total Protein 7.4 g/dL (6.4-8.2) Albumin 3.7 g/dL (3.4-5.0) Albumin/Globulin Ratio 1.0 (1.0-1.7) Laboratory Tests 09/28/18 15:40 Laboratory Tests 09/28/18 15:40 Microbiology 09/28/18 Wet Prep - Final, Complete EKG EKG [] Radiology/Procedures Radiology/Procedures Pelvic Exam: RN [employer] present 1530 Abdomen: Nontender External Genitalia: Normal Skin no lesions/rash-swelling around vaginal vault. Speculum was able to be inserted without difficulty Speculum: Mild erythematous vaginal mucosa, thin yellowish discharge in vaginal vault without blood or clots. Cervical os closed Bimanual: No adnexal masses- tenderness rt adnexa, No CMT PROCEDURE: OB <14 WKS W/TV Examination: OB <14 WKS W/TV History: Right lower adnexal region pain Comparison/Correlation: None Findings: OB ultrasound exam was performed. Transabdominal and transvaginal technique were utilized. Transvaginal technique was utilized to better assess the adnexal structures. Single living intrauterine gestation is present. Mean sac diameter of 1.58 cm corresponds 6 weeks 3 days. [place]-rump length of the pole present measures 0.38 cm corresponding to 6 weeks 0 day. No subchronic hemorrhage. Yolk sac is identified. heart rate is 169 bpm. Uterus measures 6.2 cm by 5.3 cm x 9.2 cm in length. Myometrium is unremarkable. Cervical length is 3.8 cm. There is no pelvic free fluid. Maternal ovaries are unremarkable with no evidence of torsion. Right ovary measures 2.4 cm x 2.4 cm x 2.2 cm. Left ovary measures 2.1 cm x 1.5 cm x 1.3 cm Impression: Single living intrauterine gestation corresponding to 6 weeks 0 day by crown-rump length. Electronically signed by: Quan Cuenca MD (09/28/2018 5:43 PM) [facility] DICTATED and SIGNED BY: QUAN CUENCA MD DATE: 09/28/18 1742 Course & Med Decision Making Course & Med Decision Making Pertinent Labs and Imaging studies reviewed. (See chart for details) Pt was evaluated in the ER for concerns if she had been having vaginal bleeding and has taken home tests which were positive. She had labs, UA obtained, pelvic exam, an ultrasound done while in the ER. Patient was provided with IV fluids for complaints of a few episodes of vomiting and initial heart rate was 110 although patient was quite anxious as well. On reevaluation patient's heart rate in the 80s and she reports she is feeling less anxious s luis eduardo arriving and having tests done. Patient denies any vaginal bleeding while in the ER. Test results were discussed with her with boyfriend at bedside. Pt advised on keeping her scheduled appointment with her [employer] COMM[employer]ICATION[employer] ENGINEER this week. Patient encouraged to increase fluid intake. Advised on [id number] Tylenol and daily vitamins. Pelvic rest education provided. Mary Disclaimer Mary Disclaimer This electronic medical record was generated, in whole or in part, using a voice recognition dictation system. Departure Departure Impression: Primary Impression: Threatened miscarriage in early Additional Impression: Urinary tract infection Disposition: HOME, SELF-CARE Condition: STABLE Referrals: NO PCP (PCP) Patient Instructions: ABCs of , Pelvic Rest, Threatened Miscarriage, Urinary Tract Infection Additional Instructions: Drink plenty of fluids. Well-balanced meals daily. Daily vitamins. Keep your scheduled appointment this week with your UNIFIED COMMUNICATIONS ENGINEER for reevaluation and further care. Scripts Cephalexin (KEFLEX) 500 Mg Capsule 1 CAP PO BID, #10 CAP 0 Refills Prov: EARL ANDUJAR APRN 09/28/18 Problem Qualifiers EARL ANDUJAR APRN Sep 28, 2018 15:38
[2018-09-28 15:40] LABS: SQUAMOUS EPITHELIAL CELL,UR MOD /LPF
[2018-09-28 15:41] LABS: BACTERIA,URINE 0 /HPF (0-FEW)
[2018-09-28 16:00] LABS: BASO % 0 % (0-3); EOS # 0.1 x10^3/uL (0.0-0.7); EOS % 1 % (0-3); HEMATOCRIT 36.4 % (36.0-47.0); HEMOGLOBIN 11.7 g/dL (12.0-15.5); LYMPH # 1.7 x10^3/uL (1.0-4.8); LYMPH % 17 % (24-48); MEAN CORPUSCULAR HEMOGLOBIN 25 pg (25-35); MEAN CORPUSCULAR HGB CONC 32 g/dL (31-37); MEAN CORPUSCULAR VOLUME 77 fL (79-100); MONO # 0.6 x10^3/uL (0.0-1.1); MONO % 6 % (0-9); NEUT # 7.9 x10^3uL (1.8-7.7); NEUT % 76 % (31-73); PLATELET COUNT 258 x10^3/uL (140-400); RED BLOOD COUNT 4.75 x10^6/uL (3.50-5.40); WHITE BLOOD COUNT 10.3 x10^3/uL (4.0-11.0)
[2018-09-28 16:10] LABS: CALCIUM 8.3 mg/dL (8.5-10.1); CREATININE 0.8 mg/dL (0.6-1.0); POTASSIUM 3.3 mmol/L (3.5-5.1)
[2018-09-28 16:16] LABS: ALBUMIN 3.7 g/dL (3.4-5.0); TOTAL BILIRUBIN 0.5 mg/dL (0.2-1.0); TOTAL PROTEIN 7.4 g/dL (6.4-8.2)
--- NOTE | 2018-09-28 17:46 | RAD ---
Examination: OB <14 WKS W/TV History: Right lower adnexal region pain Comparison/Correlation: None Findings: OB ultrasound exam was performed. Transabdominal and transvaginal technique were utilized. Transvaginal technique was utilized to better assess the adnexal structures. Single living intrauterine gestation is present. Mean sac diameter of 1.58 cm corresponds 6 weeks 3 days. [place]-rump length of the pole present measures 0.38 cm corresponding to 6 weeks 0 day. No subchronic hemorrhage. Yolk sac is identified. heart rate is 169 bpm. Uterus measures 6.2 cm by 5.3 cm x 9.2 cm in length. Myometrium is unremarkable. Cervical length is 3.8 cm. There is no pelvic free fluid. Maternal ovaries are unremarkable with no evidence of torsion. Right ovary measures 2.4 cm x 2.4 cm x 2.2 cm. Left ovary measures 2.1 cm x 1.5 cm x 1.3 cm Impression: Single living intrauterine gestation corresponding to 6 weeks 0 day by crown-rump length. Electronically signed by: Quan Evans MD (09/28/2018 5:43 PM) [facility]
[2018-09-28] MEDS ORDERED: CEPH-264 PO (17:55)
[2018-09-30 21:10] LABS: GC PROBE Negative (Negative)
== END 2018-09-28 18:40 | disposition home or self-care (01) ==
LOC: ER 14:55
DX: O20.0 Threatened abortion (principal); O23.41 Unspecified infection of urinary tract in pregnancy, first trimester; O21.8 Other vomiting complicating pregnancy; O99.341 Other mental disorders complicating pregnancy, first trimester; F41.8 Other specified anxiety disorders; O99.511 Diseases of the respiratory system complicating pregnancy, first trimester; J45.909 Unspecified asthma, uncomplicated; Z88.6 Allergy status to analgesic agent; Z88.1 Allergy status to other antibiotic agents; Z88.2 Allergy status to sulfonamides; Z88.8 Allergy status to other drugs, medicaments and biological substances; Z3A.01 Less than 8 weeks gestation of pregnancy
CPT/HCPCS: 36415; 76801; 76817; 80053; 81001; 81025; 84702; 85025; 87086; 87491; 87591; 96360; 99285; J7030; Q0111

== ENCOUNTER 2018-12-19 11:56 | Emergency (ER) | payer MEDICAID ==
[~2018-12-19] VITALS: Ht 167.6 cm; Wt 79.8 kg
[~2018-12-19 11:56] MED LIST changes: +CEPH-264 PO
[2018-12-19] MEDS ORDERED: IV NORMAL SALINE 1000ML BAG 1,000 ML IV SCH (12:10)
[2018-12-19] MEDS ORDERED: ONDANSETRON PF 4 MG/2 ML VIAL. IV ONE (12:15)
--- NOTE | 2018-12-19 12:45 | PHYS DOC ---
Past Medical History Past Medical History: Anxiety, Asthma, Depression, UTI, Other Additional Past Medical Histor: MOOD DISORDER, TREMOR R ARM, TACHYCARDIA Past Surgical History: No Surgical History Alcohol Use: Occasionally Drug Use: None Adult General Chief Complaint Chief Complaint: VOMITING IN [facility] HPI Patient is a 28 year old female who presents with complaining of vomiting during . Patient is A1 at 18 weeks of gestation with LMP of August 16, 2018 presented with complaining of nausea and then vomiting. Patient states she has had nausea and vomiting during her and lost about 16 pounds and started on Zofran just 3 days ago but her vomiting is getting worse for the last 3 days she has vomiting anytime she tries to eat. Patient denies abdominal pain, diarrhea and constipation, urinary symptoms, fever and chills, vaginal bleeding or discharge. Patient states she had diarrhea for one month that improved Zofran. Patient had negative gallbladder ultrasound by her [facility] at [facility]. Review of Systems Review of Systems Constitutional: Denies fever or chills [] Eyes: Denies change in visual acuity, redness, or eye pain [] HENT: Denies nasal congestion or sore throat [] Respiratory: Denies cough or shortness of breath [] Cardiovascular: No additional information not addressed in HPI [] GI: Denies abdominal pain, bloody stools or diarrhea, reports nausea and vomiting [] : Denies dysuria or hematuria [] Musculoskeletal: Denies back pain or joint pain [] Integument: Denies rash or skin lesions [] Neurologic: Denies headache, focal weakness or sensory changes [] Endocrine: Denies polyuria or polydipsia [] All other systems were reviewed and found to be within normal limits, except as documented in this note. Current Medications Current Medications Current Medications Medications (Trade) Dose Ordered Sig/Mirza Start Time Stop Time Status Last Admin Dose Admin Ondansetron HCl (Zofran) 4 mg 1X ONCE 12/19/18 12:15 12/19/18 12:16 DC 12/19/18 12:51 4 MG Sodium Chloride 1,000 ml @ 1,000 mls/hr Q1H 12/19/18 12:10 12/19/18 13:09 DC 12/19/18 12:51 1,000 MLS/HR Allergies Allergies Allergies Coded Allergies Type Severity Reaction Last Updated Verified Sulfa (Sulfonamide Antibiotics) Allergy Intermediate RASH 12/06/16 Yes ibuprofen Allergy Intermediate 01/16/18 Yes levofloxacin Allergy Intermediate HIVES 12/06/16 Yes promethazine Allergy Mild NAUSEA 12/06/16 Yes Physical Exam Physical Exam Constitutional: Well developed, well nourished, mild distress, non-toxic ap pearance. [] HENT: Normocephalic, atraumatic, moist oral mucosa. Eyes: PERRLA, EOMI, conjunctiva normal, no discharge. [] Neck: Normal range of motion, no tenderness, supple, no stridor. [] Cardiovascular:Heart rate regular rhythm, no murmur [] Lungs & Thorax: Bilateral breath sounds clear to auscultation [] Abdomen: Bowel sounds normal, soft, no tenderness, no masses, no pulsatile masses, gravid abdomen without tenderness or construction, heart rate 146. [] Skin: Warm, dry, no erythema, no rash. [] Back: No tenderness, no CVA tenderness. [] Extremities: No tenderness, no cyanosis, no clubbing, ROM intact, no edema. [] Neurologic: Alert and oriented X 3, no focal deficits noted. [] Psychologic: Affect normal, judgement normal, mood normal. [] Current Patient Data Vital Signs Vital Signs Date Time Temp Pulse Resp B/P (MAP) Pulse Ox O2 Delivery O2 Flow Rate FiO2 12/19/18 14:06 72 16 105/62 (76) 100 Room Air 12/19/18 12:00 98.3 98.3 Lab Values Laboratory Tests Test 12/19/18 12:30 12/19/18 12:50 Urine Collection Type Unknown Urine Color Yellow Urine Clarity Clear Urine pH 6.0 Urine Specific [place] 1.025 Urine Protein Negative mg/dL (NEG-TRACE) Urine Glucose (UA) Negative mg/dL (NEG) Urine Ketones (Stick) Negative mg/dL (NEG) Urine Blood Negative (NEG) Urine Nitrite Negative (NEG) Urine Bilirubin Negative (NEG) Urine Urobilinogen Dipstick 1.0 mg/dL (0.2 mg/dL) Urine Leukocyte Esterase Large (NEG) Urine RBC 0 /HPF (0-2) Urine WBC >40 /HPF (0-4) Urine Squamous Epithelial Cells Many /LPF Urine Bacteria Many /HPF (0-FEW) Urine Mucus Marked /LPF White Blood Count 8.9 x10^3/uL (4.0-11.0) Red Blood Count 4.50 x10^6/uL (3.50-5.40) Hemoglobin 12.2 g/dL (12.0-15.5) Hematocrit 36.5 % (36.0-47.0) Mean Corpuscular Volume 81 fL (79-100) Mean Corpuscular Hemoglobin 27 pg (25-35) Mean Corpuscular Hemoglobin Concent 33 g/dL (31-37) Red Cell Distribution Width 17.0 % (11.5-14.5) H Platelet Count 197 x10^3/uL (140-400) Neutrophils (%) (Auto) 78 % (31-73) H Lymphocytes (%) (Auto) 15 % (24-48) L Monocytes (%) (Auto) 6 % (0-9) Eosinophils (%) (Auto) 0 % (0-3) Basophils (%) (Auto) 0 % (0-3) Neutrophils # (Auto) 7.0 x10^3/uL (1.8-7.7) Lymphocytes # (Auto) 1.3 x10^3/uL (1.0-4.8) Monocytes # (Auto) 0.5 x10^3/uL (0.0-1.1) Eosinophils # (Auto) 0.0 x10^3/uL (0.0-0.7) Basophils # (Auto) 0.0 x10^3/uL (0.0-0.2) Sodium Level 138 mmol/L (136-145) Potassium Level 4.2 mmol/L (3.5-5.1) Chloride Level 105 mmol/L (98-107) Carbon Dioxide Level 25 mmol/L (21-32) Anion Gap 8 (6-14) Blood Urea Nitrogen 7 mg/dL (7-20) Creatinine 0.7 mg/dL (0.6-1.0) Estimated GFR (Cockcroft-Gault) 100.4 BUN/Creatinine Ratio 10 (6-20) Glucose Level 87 mg/dL (70-99) Calcium Level 8.9 mg/dL (8.5-10.1) Total Bilirubin 0.3 mg/dL (0.2-1.0) Aspartate Amino Transferase (AST) 26 U/L (15-37) Alanine Aminotransferase (ALT) 23 U/L (14-59) Alkaline Phosphatase 116 U/L (46-116) Total Protein 7.2 g/dL (6.4-8.2) Albumin 2.8 g/dL (3.4-5.0) L Albumin/Globulin Ratio 0.6 (1.0-1.7) L Lipase 74 U/L (73-393) Laboratory Tests 12/19/18 12:50 Laboratory Tests 12/19/18 12:50 EKG EKG [] Radiology/Procedures Radiology/Procedures [] Course & Med Decision Making Course & Med Decision Making Pertinent Labs reviewed. (See chart for details) Evaluation of patient in ER showed 28-year-old female patient at 18 weeks of gestation with complaining of increasing nausea and vomiting for the last 3 days without vaginal bleeding or abdominal pain or fever and chills. Patient had unremarkable physical exam and labs except for UTI. Patient tolerated oral intake without problem. Patient was advised to continue Zofran and prescription for Keflex for UTI was given. Dragon Disclaimer Dragon Disclaimer This electronic medical record was generated, in whole or in part, using a voice recognition dictation system. Departure Departure Impression: Primary Impression: Hyperemesis gravidarum Additional Impression: Urinary tract infection during Disposition: 01 HOME, SELF-CARE (at 1400) Condition: IMPROVED Referrals: UNKNOWN PCP NAME (PCP) Patient Instructions: Diet - Hyperemesis Gravidarum, Hyperemesis Gravidarum, Urinary Tract Infection Additional Instructions: Drink plenty of liquids Follow-up with your MANAGER [employer] physician in 3-5 days Return to ER if not getting better Continue home Zofran Scripts Cephalexin (KEFLEX) 500 Mg Capsule 2 CAP PO Q12HR, #28 CAP Prov: CHAVO SINGH MD 12/19/18 Problem Qualifiers Additional Impression: Urinary tract infection during Trimester: second trimester Qualified Codes: O23.42 - Unspecified inf ection of urinary tract in , second trimester CHAVO SINGH MD Dec 19, 2018 12:45
[2018-12-19 12:47] LABS: BILIRUBIN,URINE NEGATIVE (NEG); CLARITY,URINE CLEAR; COLOR,URINE YELLOW; NITRITE,URINE NEGATIVE (NEG); PROTEIN,URINE NEGATIVE (NEG-TRACE)
[2018-12-19 12:57] LABS: SQUAMOUS EPITHELIAL CELL,UR MANY /LPF
[2018-12-19 12:59] LABS: BACTERIA,URINE MANY /HPF (0-FEW); RBC,URINE 0 /HPF (0-2); WBC,URINE >40 /HPF (0-4)
[2018-12-19 13:03] LABS: BASO % 0 % (0-3); EOS % 0 % (0-3); HEMATOCRIT 36.5 % (36.0-47.0); HEMOGLOBIN 12.2 g/dL (12.0-15.5); LYMPH # 1.3 x10^3/uL (1.0-4.8); LYMPH % 15 % (24-48); MEAN CORPUSCULAR HEMOGLOBIN 27 pg (25-35); MEAN CORPUSCULAR HGB CONC 33 g/dL (31-37); MEAN CORPUSCULAR VOLUME 81 fL (79-100); MONO # 0.5 x10^3/uL (0.0-1.1); MONO % 6 % (0-9); NEUT % 78 % (31-73); PLATELET COUNT 197 x10^3/uL (140-400); WHITE BLOOD COUNT 8.9 x10^3/uL (4.0-11.0)
[2018-12-19 13:16] LABS: CALCIUM 8.9 mg/dL (8.5-10.1); CREATININE 0.7 mg/dL (0.6-1.0); GFR 100.4; POTASSIUM 4.2 mmol/L (3.5-5.1)
[2018-12-19 13:19] LABS: ALBUMIN 2.8 g/dL (3.4-5.0); ALBUMIN/GLOBULIN RATIO 0.6 (1.0-1.7); TOTAL BILIRUBIN 0.3 mg/dL (0.2-1.0); TOTAL PROTEIN 7.2 g/dL (6.4-8.2)
[2018-12-19] MEDS ORDERED: CEPH-264 PO (14:02)
[2018-12-19 14:06] VITALS: BP 105/62
== END 2018-12-19 14:35 | disposition home or self-care (01) ==
LOC: ER 11:56
DX: O21.0 Mild hyperemesis gravidarum (principal); O23.42 Unspecified infection of urinary tract in pregnancy, second trimester; O99.342 Other mental disorders complicating pregnancy, second trimester; O99.512 Diseases of the respiratory system complicating pregnancy, second trimester; F41.8 Other specified anxiety disorders; J45.909 Unspecified asthma, uncomplicated; Z88.2 Allergy status to sulfonamides; Z88.6 Allergy status to analgesic agent; Z88.1 Allergy status to other antibiotic agents; Z88.8 Allergy status to other drugs, medicaments and biological substances; Z3A.18 18 weeks gestation of pregnancy
CPT/HCPCS: 36415; 80053; 81001; 83690; 85025; 87086; 96361; 96374; 99284; J2405; J7030